=== PATIENT | female | born 1970 | race Two or more races ===

== ENCOUNTER → 2018-10-20 | Outpatient (CLI) | payer BC ==
--- NOTE | 2018-10-20 10:38 | KCIC ---
Bilateral diagnostic digital mammograms: Reason for examination: Intermittent breast pain in the periareolar regions. Comparison is made to previous study dated comparison is made to previous studies from 04/13/2011 and 11/24/2009. Interpretation was made with the benefit of CAD. The skin and nipples show no abnormalities. No abnormal axillary lymph nodes are seen. The breast parenchyma shows scattered fibroglandular density. (Breast density: Category B.) There are no dominant masses, suspicious calcifications or architectural distortions. Impression: No evidence of malignancy. Ultrasound to follow. BI-RADS Category 0: Incomplete. Needs additional imaging evaluation. Bilateral breast ultrasound: Ultrasound examination was performed bilaterally with attention to the areas of clinical concern and the axilla. No focal abnormalities are seen in the periareolar regions. There is no significant ductal ectasia. No abnormal appearing lymph nodes are seen in the axilla. IMPRESSION: No focal abnormality seen sonographically in either breast. Recommend routine mammographic follow-up. BI-RADS Category 1: Negative. "Our facility is accredited by the [employer] Mammography [employer]." This patient's information has been entered into a reminder system for the patient to be notified with the results of her examination and a target date for the next mammogram. Electronically signed by: Tanisha Lehman MD (10/20/2018 10:35 AM) [id number]
== END | disposition home or self-care (01) ==
LOC: KCIC MAMMO 08:50
PROVIDERS: ATTEND Family Medicine
DX: N64.4 Mastodynia (principal)
CPT/HCPCS: 76641; 77066